=== PATIENT | male | born 1955 | race Caucasian/White ===

== ENCOUNTER → 2023-07-27 09:55 | Outpatient (REF) | payer OTHER, SELFPAY ==
[2023-07-27 13:08] LABS: % Basophils 0.6 % (0-2); % Eosinophils 1.1 % (0-6); % Immature Granulocytes 0.3 % (0-0.5); % Lymphocytes 22.5 % (20.5-51.1); % Neutrophils 69.5 % (42.2-75.2); Absolute Basophils 0.1 10^3/uL (0-0.2); Absolute Eosinophils 0.1 10^3/uL (0-0.7); Absolute Lymphocytes 2.2 10^3/uL (1.2-3.4); Absolute Monocytes 0.6 10^3/uL (0.1-0.6); Absolute Neutrophils 6.8 10^3/uL (1.4-6.5); Hematocrit 40.7 % (39.0-52.0); Hemoglobin 12.8 g/dL (13.0-18.0); Mean Corp Hgb Conc. 31.4 g/dL (33.0-37.0); Mean Corpuscular Hgb 18.7 pg (27.0-31.0); Mean Corpuscular Volume 59.5 fL (80.0-94.0); Mean Platelet Volume 10.1 fL (7.4-10.4); Nucleated Red Blood Cells % 0 % (-); Platelet Count 263 10^3/uL (130-400); Red Blood Cell Count 6.84 10^6/uL (4.70-6.10); Red Cell Dist. Width 18.9 % (11.5-14.5); White Blood Cell Count 9.9 10^3/uL (4.8-10.8)
[2023-07-27 13:22] LABS: ALT (SGPT) 20 U/L (0-50); AST (SGOT) 23 U/L (17-59); Albumin 4.6 g/dl (3.5-5.0); Alkaline Phosphatase 83 U/L (38-126); Blood Urea Nitrogen 24 mg/dl (9-20); Calcium 9.9 mg/dl (8.4-10.2); Carbon Dioxide 27 mmol/L (22-30); Chloride 100 mmol/L (98-107); Glucose 151 mg/dl (70-99); HDL Cholesterol 59 mg/dl; Iron 106 ug/dl (49-181); LDL Cholesterol, Calculated 28 mg/dl; Sodium 137 mmol/L (135-145); Total Cholesterol 101 mg/dl (50-199); Total Protein 7.4 g/dl (6.3-8.2); Triglyceride 72 mg/dl (10-149); Very Low Density Lipoprotein 14 mg/dl (0-30); eGFR > 60.00
[2023-07-27 13:29] LABS: Potassium 4.2 mmol/L (3.5-5.1)
[2023-07-27 13:31] LABS: Percent Saturation 33 % (20-50); Total Iron Binding Capacity 312 ug/dl (261-462)
[2023-07-27 13:46] LABS: Microalbumin, Random Urine 5.9 mg/dl (0.6-1.7); Microalbumin/creatinine Ratio 94.2 mg/g
[2023-07-27 13:46] LABS: TSH Reflex To Free T4 0.51 uIU/ml (0.47-4.68)
[2023-07-27 14:31] LABS: Glycohemoglobin (HgbA1c) 7.8 % (4.0-5.6)
== END ==
LOC: HWLAB 09:55
PROVIDERS: ATTENDING PHYSICIAN Internal Medicine
DX: E11.65 Type 2 diabetes mellitus with hyperglycemia (principal); E78.00 Pure hypercholesterolemia, unspecified; D56.3 Thalassemia minor; R03.0 Elevated blood-pressure reading, without diagnosis of hypertension; Z86.73 Personal history of transient ischemic attack (TIA), and cerebral infarction without residual deficits; D64.9 Anemia, unspecified
CPT/HCPCS: 36415; 80053; 80061; 82043; 82570; 82728; 83036; 83540; 83550; 84443; 85025

== ENCOUNTER → 2024-02-10 08:43 | Outpatient (REF) | payer OTHER, SELFPAY ==
[2024-02-10 11:32] LABS: Urine Albumin Negative (Neg - Trace); Urine Bilirubin Negative (Negative); Urine Character Clear (Clear); Urine Color Yellow; Urine Glucose 2+ (Negative); Urine Ketone Negative (Negative); Urine Leukocyte 1+ (Negative); Urine Nitrite Negative (Negative); Urine Occult Blood Negative (Negative); Urine Urobilinogen Negative (Neg - 1+)
[2024-02-10 11:40] LABS: % Basophils 1.1 % (0-2); % Eosinophils 1.7 % (0-6); % Immature Granulocytes 0.4 % (0-0.5); % Lymphocytes 20.6 % (20.5-51.1); % Monocytes 5.8 % (1.7-9.3); % Neutrophils 70.4 % (42.2-75.2); Absolute Basophils 0.1 10^3/uL (0-0.2); Absolute Eosinophils 0.1 10^3/uL (0-0.7); Absolute Lymphocytes 1.6 10^3/uL (1.2-3.4); Absolute Monocytes 0.4 10^3/uL (0.1-0.6); Absolute Neutrophils 5.3 10^3/uL (1.4-6.5); Hematocrit 38.2 % (39.0-52.0); Hemoglobin 11.7 g/dL (13.0-18.0); Mean Corp Hgb Conc. 30.6 g/dL (33.0-37.0); Mean Corpuscular Hgb 18.5 pg (27.0-31.0); Mean Corpuscular Volume 60.3 fL (80.0-94.0); Nucleated Red Blood Cells % 0 % (-); Platelet Count 236 10^3/uL (130-400); Red Blood Cell Count 6.34 10^6/uL (4.70-6.10); Red Cell Dist. Width 18.6 % (11.5-14.5); White Blood Cell Count 7.6 10^3/uL (4.8-10.8)
[2024-02-10 11:43] LABS: ALT (SGPT) 20 U/L (0-50); AST (SGOT) 21 U/L (17-59); Albumin 4.4 g/dl (3.5-5.0); Alkaline Phosphatase 72 U/L (38-126); Blood Urea Nitrogen 19 mg/dl (9-20); Calcium 9.5 mg/dl (8.4-10.2); Carbon Dioxide 25 mmol/L (22-30); Chloride 103 mmol/L (98-107); Glucose 197 mg/dl (70-99); Potassium 4.4 mmol/L (3.5-5.1); Sodium 142 mmol/L (135-145); Total Bilirubin 0.7 mg/dl (0.2-1.3); Total Protein 7.1 g/dl (6.3-8.2); eGFR > 60.00
[2024-02-10 11:49] LABS: Urine Bacteria Few (Negative); Urine Red Blood Cell 0-2 /HPF (0-2); Urine Squamous Cell 0-2 /LPF (Few); Urine White Cell 40-50 /HPF (0-5)
[2024-02-10 12:12] LABS: PSA, Total - Screen 0.37 ng/ml (0.0-4.0)
[2024-02-10 13:58] LABS: Glycohemoglobin (HgbA1c) 7.5 % (4.0-5.6)
== END ==
LOC: HWLAB 08:43
PROVIDERS: ATTENDING PHYSICIAN Internal Medicine
DX: E11.65 Type 2 diabetes mellitus with hyperglycemia (principal); E66.01 Morbid (severe) obesity due to excess calories; E78.00 Pure hypercholesterolemia, unspecified; Z86.73 Personal history of transient ischemic attack (TIA), and cerebral infarction without residual deficits; R26.89 Other abnormalities of gait and mobility; R45.1 Restlessness and agitation; G62.9 Polyneuropathy, unspecified; D64.9 Anemia, unspecified; Z12.5 Encounter for screening for malignant neoplasm of prostate
CPT/HCPCS: 36415; 80053; 81003; 81015; 83036; 85025; G0103

== ENCOUNTER 2024-05-22 02:38 | Emergency (ER) | payer OTHER, SELFPAY ==
[2024-05-22 03:01] VITALS: BP 150/94
[2024-05-22 04:52] VITALS: BP 171/84
--- NOTE | 2024-05-22 05:21 | ED.GENMED ---
History of Present Illness
General
Chief Complaint: Chest Pain
Source: patient
Time Seen by Provider: 05/22/24 04:57
History of Present Illness
History of Present Illness:
69-year-old male presents to the emergency room complaining of pain in his left neck, shoulder and chest. Pain awoke him from sleep. He also felt a bit short of breath. Patient denies any previous cardiac history though he has had a CVA in the
past. Presently his main complaint is pain in the back of his neck actually. Is worse with movement. No focal weakness numbness or tingling.
Past History
Past History
ED Past Medical History: Cancer (Basal cell), COPD, Hypercholesterolemia, NIDDM and Other (Thalassemia, pyelonephritis, nephrolithiasis, diverticulosis, colon polyps, osteoarthritis)
ED Past Surgical History: Orthopedic (Right ankle)
Social History
Tobacco: Former smoker
Alcohol: None
Drug: None
Personal:
Living: with family
Employment: Employed (heating/cooling)
Family History
Family History: Other (nc)
Phy Exam
Physical Exam
Physical Exam:
General: Awake, Alert, Oriented X3. No acute distress.
Vitals: Moderately hypertensive
Head: Atraumatic
Eyes: Pupils equal, EOMI
Throat: Airway intact, no exudates
Neck: Trachea midline, tenderness and muscle spasm noted left paraspinal cervical musculature
Lungs: Clear and equal b/l
Heart: Regular rate, no murmurs
Abd: Soft, Nontender, No pulsatile mass
Back: No CVA tenderness to percussion
Neuro: Cranial nerves intact, muscle strength equal bilaterally, cerebellar exam normal
Skin: Warm, dry, no rash
Extremities: pulses equal b/l, no edema
Scores
Heart Score for Chest Pain Patients
STEMI patient?: No
History: Slightly or Non-Suspicious
ECG: Nonspecific Repolarization
Age: >/= 65 years
Risk Factors: 1 or 2 Risk Factors
Troponin: </= Normal Limit
Heart Score for Chest Pain Patients: 4
Heart Score Risk: 20.3% MACE over next 6 weeks
Course
Orders/Labs/Results
Orders:
Orders
05/22/24 02:52
EKG [Electrocardiogram (*1)] Urgent
Reason for Study: Chest Pain
05/22/24 02:53
EKG- Treatment ONCE
05/22/24 04:57
Complete Blood Count/With Diff Urgent
Comprehensive Metabolic Panel Urgent
Troponin I Urgent
05/22/24 05:21
Aspirin Chewable [Low Strength Aspirin] 324 mg PO NOW STA
05/22/24 05:22
CR Chest - 2 Views Urgent
Comment:
Reason For Exam: chest pain
05/22/24 07:02
Troponin I Urgent
05/22/24 07:30
CT Chest Angio W/wo Iv Contras Urgent
Comment:
Reason For Exam: chest neck pain
Oxycodone [Roxicodone] 5 mg PO NOW STA
Abnormal Lab Results
05/22/24
04:57
WBC 13.0 H 10^3/uL
(4.8-10.8)
RBC 6.32 H 10^6/uL
(4.70-6.10)
Hgb 11.8 L g/dL
(13.0-18.0)
Hct 38.6 L %
(39.0-52.0)
MCV 61.1 L fL
(80.0-94.0)
MCH 18.7 L pg
(27.0-31.0)
MCHC 30.6 L g/dL
(33.0-37.0)
RDW 19.2 H %
(11.5-14.5)
Abs Immat Gran (auto) 0.1 H 10^3/uL
(0-0.05)
Absolute Neuts (auto) 10.5 H 10^3/uL
(1.4-6.5)
Absolute Monos (auto) 0.8 H 10^3/uL
(0.1-0.6)
Neutrophils % 80.8 H %
(42.2-75.2)
Lymphocytes % 10.7 L %
(20.5-51.1)
BUN 22 H mg/dl
(9-20)
Glucose 216 H mg/dl
(70-99)
05/22/24 04:57
05/22/24 04:57
Vital Signs
Initial and Last Documented VS:
Initial Vital Signs
Temp Pulse Resp BP Pulse Ox
98.2 F 66 18 150/94 98
05/22/24 03:01 05/22/24 03:01 05/22/24 03:01 05/22/24 03:01 05/22/24 03:01
Last Documented Vital Signs
Temp Pulse Resp BP Pulse Ox
98.5 F 75 16 140/82 98
05/22/24 09:24 05/22/24 10:35 05/22/24 10:35 05/22/24 10:35 05/22/24 10:35
*EKG
Interpreted by ED Provider?: Yes
Heart Rate: 71
Rate: normal
Rhythm: sinus
Slaughter: normal axis
Interval: first degree heart block
QRS Pattern: normal QRS
Ischemia: non-specific ST changes
*Pole Framer Interpretation
Rate: normal
Interpretation: normal
Heart Rate: 71
Rhythm: sinus
*Critical Care Note
Total Time (30-74mins, 75-104mins- exclusive of procedures): Not Applicable
ED Attending Note
-
Portions of this chart may have been created with voice recognition software.� Occasional wrong word or��sound alike� substitutions may have occurred due to the inherent limitations of voice recognition software.
Discharge Plan
Departure
Patient Disposition: Home (Routine Discharge)
Date of Disposition: 05/22/24
Time of Disposition: 10:14
Patient with high blood pressure during this ER visit?: Yes
Condition: Good
Discharge Problem:
Chest pain
Instructions: Chest Pain CBC Follow Up, BLOOD PRESSURE
Prescriptions:
No Action
metformin 1,000 mg Tablet
1,000 mg PO BID@0800,1700
cyanocobalamin (vitamin B-12) 1,000 mcg Tablet
1,000 mcg PO DAILY
aspirin 81 mg Tablet,Delayed Release (Dr/Ec)
81 mg PO DAILY
Ozempic 1 mg/dose (4 mg/3 mL) Pen Injector
1 mg SC FR
Prevagan
1 cap PO DAILY
atorvastatin 40 mg Tablet
40 mg PO QPM Qty: 60 0RF
clopidogrel 75 mg Tablet
75 mg PO DAILY Qty: 60 0RF
Referrals:
Nelda Mallory DO [Family Provider] -
Interventions
Interventions:
*Risk Screen - Suicide Last Done: 05/22/24 03:01
*General Assessment Last Done: 05/22/24 03:01
*Neglect/Abuse Screening Last Done: 05/22/24 03:01
ED- Fall Risk Assessment Last Done: 05/22/24 09:18
*Nursing Disposition Last Done: 05/22/24 10:37
ED- Cardiac Assessment Last Done: 05/22/24 09:20
Discharge Date and Time
Discharge Date/Time: 05/22/24 10:40
Print Language: CONGOLESE
[2024-05-22 05:37] LABS: ALT (SGPT) 21 U/L (0-50); AST (SGOT) 21 U/L (17-59); Albumin 4.6 g/dl (3.5-5.0); Alkaline Phosphatase 92 U/L (38-126); Blood Urea Nitrogen 22 mg/dl (9-20); Calcium 9.9 mg/dl (8.4-10.2); Carbon Dioxide 27 mmol/L (22-30); Chloride 102 mmol/L (98-107); Glucose 216 mg/dl (70-99); Potassium 4.4 mmol/L (3.5-5.1); Sodium 138 mmol/L (135-145); Total Bilirubin 0.8 mg/dl (0.2-1.3); eGFR > 60.00
[2024-05-22 05:41] LABS: % Basophils 0.5 % (0-2); % Eosinophils 1.1 % (0-6); % Immature Granulocytes 0.5 % (0-0.5); % Lymphocytes 10.7 % (20.5-51.1); % Monocytes 6.4 % (1.7-9.3); % Neutrophils 80.8 % (42.2-75.2); Absolute Basophils 0.1 10^3/uL (0-0.2); Absolute Eosinophils 0.1 10^3/uL (0-0.7); Absolute Immature Granulocytes 0.1 10^3/uL (0-0.05); Absolute Lymphocytes 1.4 10^3/uL (1.2-3.4); Absolute Monocytes 0.8 10^3/uL (0.1-0.6); Absolute Neutrophils 10.5 10^3/uL (1.4-6.5); Hematocrit 38.6 % (39.0-52.0); Hemoglobin 11.8 g/dL (13.0-18.0); Mean Corp Hgb Conc. 30.6 g/dL (33.0-37.0); Mean Corpuscular Hgb 18.7 pg (27.0-31.0); Mean Corpuscular Volume 61.1 fL (80.0-94.0); Mean Platelet Volume 9.4 fL (7.4-10.4); Nucleated Red Blood Cells % 0 % (-); Platelet Count 228 10^3/uL (130-400); Red Blood Cell Count 6.32 10^6/uL (4.70-6.10); Red Cell Dist. Width 19.2 % (11.5-14.5)
[2024-05-22 05:48] LABS: Troponin I < 0.012 ng/ml
[2024-05-22] MEDS: LOW STRENGTH ASPIRIN 324 MG PO (06:04)
[2024-05-22 06:57] VITALS: BP 152/66
[2024-05-22 07:00] VITALS: BP 136/89
[2024-05-22] MEDS: ROXICODONE 5 MG PO (07:37)
[2024-05-22 07:44] LABS: Troponin I < 0.012 ng/ml
[2024-05-22 08:00] VITALS: BP 126/66
[2024-05-22 10:35] VITALS: BP 140/82
== END 2024-05-22 10:40 | disposition home or self-care (01) ==
LOC: EMR 02:38
PROVIDERS: EMERGENCY PHYSICIAN Emergency Medicine; FAMILY PHYSICIAN Internal Medicine
DX: R07.89 Other chest pain (principal); R03.0 Elevated blood-pressure reading, without diagnosis of hypertension; Z87.891 Personal history of nicotine dependence
CPT/HCPCS: 99285; 71046; 71275; 80053; 84484; 85025; 93005; Q9967

== ENCOUNTER → 2024-06-07 11:01 | Outpatient (REF) | payer OTHER, SELFPAY | LOC: HWRCS 11:01 | PROVIDERS: ATTENDING PHYSICIAN Nurse Practitioner; FAMILY PHYSICIAN Internal Medicine | DX: I34.0 Nonrheumatic mitral (valve) insufficiency (principal) | CPT/HCPCS: 93306 ==

== ENCOUNTER 2024-09-03 09:44 | Inpatient (IN) | payer OTHER, SELFPAY ==
[2024-08-31 17:17] VITALS: BP 136/82
[2024-08-31 17:42] LABS: % Basophils 0.5 % (0-2); % Eosinophils 0.2 % (0-6); % Immature Granulocytes 0.3 % (0-0.5); % Lymphocytes 14.4 % (20.5-51.1); % Monocytes 4.7 % (1.7-9.3); % Neutrophils 79.9 % (42.2-75.2); Absolute Basophils 0.1 10^3/uL (0-0.2); Absolute Lymphocytes 1.6 10^3/uL (1.2-3.4); Absolute Monocytes 0.5 10^3/uL (0.1-0.6); Absolute Neutrophils 8.6 10^3/uL (1.4-6.5); Hematocrit 38.2 % (39.0-52.0); Hemoglobin 12.2 g/dL (13.0-18.0); Mean Corp Hgb Conc. 31.9 g/dL (33.0-37.0); Mean Corpuscular Hgb 18.7 pg (27.0-31.0); Mean Corpuscular Volume 58.6 fL (80.0-94.0); Mean Platelet Volume 9.8 fL (7.4-10.4); Nucleated Red Blood Cells % 0 % (-); Platelet Count 236 10^3/uL (130-400); Red Blood Cell Count 6.52 10^6/uL (4.70-6.10); Red Cell Dist. Width 18.7 % (11.5-14.5); White Blood Cell Count 10.8 10^3/uL (4.8-10.8)
[2024-08-31 17:47] LABS: ALT (SGPT) 18 U/L (0-50); AST (SGOT) 19 U/L (17-59); Albumin 4.7 g/dl (3.5-5.0); Alkaline Phosphatase 75 U/L (38-126); Blood Urea Nitrogen 17 mg/dl (9-20); Calcium 9.9 mg/dl (8.4-10.2); Carbon Dioxide 24 mmol/L (22-30); Chloride 108 mmol/L (98-107); Glucose 124 mg/dl (70-99); Potassium 4.1 mmol/L (3.5-5.1); Sodium 141 mmol/L (135-145); Total Protein 7.7 g/dl (6.3-8.2); eGFR > 60.00
[2024-08-31 17:59] LABS: Troponin I 0.022 ng/ml
--- NOTE | 2024-08-31 19:41 | ED.GENMED ---
History of Present Illness
General
Chief Complaint: Chest Pain
Time Seen by Provider: 08/31/24 19:12
History of Present Illness
History of Present Illness:
Patient is a 69-year-old male with history of diabetes, CVA, hyperlipidemia presenting to the emergency department with chest pain. Patient states for the past 3 days he has had midsternal chest pain that radiates down his left arm. He states that
it is at rest but worsens with exertion. He has associated shortness of breath and nausea. Occasionally will get lightheaded dizzy with it. No numbness tingling. However he states that occasionally he feels his right lower extremity will become
weak. He believes that it has been ongoing since before the chest pain which is why he has had multiple falls in the past few days. He did not hit his head or lose consciousness. He did have a stress test done last year reportedly which was
normal. He has not followed up with cardiology in greater than a year. At this time patient states that he is chest pain-free.
Past History
Past History
ED Past Medical History: Cancer (Basal cell), COPD, Hypercholesterolemia, NIDDM and Other (Thalassemia, pyelonephritis, nephrolithiasis, diverticulosis, colon polyps, osteoarthritis)
ED Past Surgical History: Orthopedic (Right ankle)
Social History
Tobacco: Former smoker
Alcohol: None
Drug: None
Personal:
Living: with family
Employment: Employed (heating/cooling)
Family History
Family History: Other (nc)
Phy Exam
Physical Exam
Physical Exam:
GENERAL: in no acute distress
HEENT: normocephalic, extraocular movements intact, moist oral mucosa
NECK: normal inspection
RESPIRATORY: no respiratory distress, clear to auscultation bilaterally
CARDIOVASCULAR: regular rate and rhythm
ABDOMEN/: soft, non-distended, non-tender to palpation, no rebound or guarding
EXTREMITIES: non-tender, no edema/swelling
NEUROLOGIC: awake and alert, moves all extremities, equal strength in upper and lower extremities normal sensation
SKIN: warm
Scores
Heart Score for Chest Pain Patients
STEMI patient?: Not applicable
Course
Orders/Labs/Results
Orders:
Orders
08/31/24 17:09
Electrocardiogram (*1) Urgent
Reason for Study: Chest Pain
EKG- Treatment ONCE
08/31/24 17:23
Complete Blood Count/With Diff Urgent
Comprehensive Metabolic Panel Urgent
Troponin I Urgent
08/31/24 19:29
EKG- Treatment ONCE
CR Chest - 2 Views Urgent
Comment:
Reason For Exam: chest pain
08/31/24 19:39
CT Head W/o Iv Contrast Urgent
Comment:
Reason For Exam: right leg weakness
08/31/24 20:00
Electrocardiogram (*1) Urgent
Reason for Study: Chest Pain
08/31/24 20:25
Troponin I Urgent
Abnormal Lab Results
08/31/24
17:23
RBC 6.52 H 10^6/uL
(4.70-6.10)
Hgb 12.2 L g/dL
(13.0-18.0)
Hct 38.2 L %
(39.0-52.0)
MCV 58.6 L fL
(80.0-94.0)
MCH 18.7 L pg
(27.0-31.0)
MCHC 31.9 L g/dL
(33.0-37.0)
RDW 18.7 H %
(11.5-14.5)
Absolute Neuts (auto) 8.6 H 10^3/uL
(1.4-6.5)
Neutrophils % 79.9 H %
(42.2-75.2)
Lymphocytes % 14.4 L %
(20.5-51.1)
Chloride 108 H mmol/L
(98-107)
Creatinine 0.6 L mg/dL
(0.7-1.3)
Glucose 124 H mg/dl
(70-99)
08/31/24 17:23
08/31/24 17:23
Vital Signs
Initial and Last Documented VS:
Initial Vital Signs
Temp Pulse Resp BP Pulse Ox
98.0 F 87 18 136/82 97
08/31/24 17:17 08/31/24 17:17 08/31/24 17:17 08/31/24 17:17 08/31/24 17:17
Last Documented Vital Signs
Temp Pulse Resp BP Pulse Ox
98.0 F 78 12 136/82 97
08/31/24 17:17 08/31/24 19:15 08/31/24 19:15 08/31/24 17:17 08/31/24 17:17
MDM/Problems Addressed
Differential Diagnosis Includes:
Patient is a 69-year-old man presenting to the emergency department with chest pain as well as right leg weakness as cause multiple falls. On arrival vitals are unremarkable. On exam he does not have any neurodeficits. Concern for ACS. The right
leg weakness did precede the chest pain. I did consider dissection though less likely as he is chest pain-free and this has been going on for many days. Could be CVA or TIA. Blood work obtained prior to my evaluation is generally unremarkable.
Given that his chest pain comes and goes will obtain a delta troponin. Will also obtain a CT scan of his head.
*Critical Care Note
Total Time (30-74mins, 75-104mins- exclusive of procedures): Not Applicable
Update Note
Update Note:
Delta troponin with no significant change. CT scan of the head negative. Patient with significant difficulty with ambulation. He would benefit from PT evaluation especially given his recurrent falls. Discussed with hospitalist who accepted
patient to their service
ED Attending Note
-
Portions of this chart may have been created with voice recognition software.� Occasional wrong word or��sound alike� substitutions may have occurred due to the inherent limitations of voice recognition software.
Discharge Plan
Departure
Patient Disposition: Admit
Date of Disposition: 08/31/24
Time of Disposition: 22:09
Presentation/result/management discussed w/ accepting MD/DO: Hospitalist
Discharge Problem:
Ambulatory dysfunction, Chest pain
Prescriptions:
No Action
metformin 1,000 mg Tablet
1,000 mg PO BID@0800,1700
cyanocobalamin (vitamin B-12) 1,000 mcg Tablet
1,000 mcg PO DAILY
aspirin 81 mg Tablet,Delayed Release (Dr/Ec)
81 mg PO DAILY
Ozempic 1 mg/dose (4 mg/3 mL) Pen Injector
1 mg SC FR
Prevagan
1 cap PO DAILY
atorvastatin 40 mg Tablet
40 mg PO QPM Qty: 60 0RF
clopidogrel 75 mg Tablet
75 mg PO DAILY Qty: 60 0RF
Referrals:
Ramone Knutson MD [Primary Care Provider] -
Interventions
Interventions:
*Risk Screen - Suicide Last Done: 08/31/24 17:17
*General Assessment Last Done: 08/31/24 17:17
*Neglect/Abuse Screening Last Done: 08/31/24 17:17
ED- Cardiac Assessment Last Done: 08/31/24 20:00
Discharge Date and Time
Print Language: IRAQI
[2024-08-31 20:17] VITALS: BP 120/66
[2024-08-31 21:06] LABS: Troponin I 0.029 ng/ml
[2024-08-31 21:25] VITALS: BP 129/90
[2024-08-31 22:00] VITALS: BP 137/73
--- NOTE | 2024-08-31 22:25 | HPS.HSE ---
Addendum entered and electronically signed by Dorian Haynes DO 08/31/24 23:58:
Patient seen and examined independently. Agree with findings and plan as set forth by MICK Doyle.
Patient presents for evaluation after being down on the ground for about 3 hours earlier today. Patient reports RLE weakness that has been ongoing / progressive over the past 6 months. He notes particular trouble getting up if he is kneeling on
the ground. 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 He states that his R leg gave out and he collapsed on a few occasions. On the final occasion he was unable to get up. he remained on the ground for about 3
hours until he was able to crawl to get help.
Patient denies any RUE weakness at all. He denies any headache, vision changes, etc. No recent fevers / chills, etc.
Patient does complain of chest pain across the anterior chest that has been intermittent for the past 1 week or so. No associated diaphoresis, dyspnea, etc.
Patient states that his RLE weakness has been attributed to neuropathy. he states that he has appreciated decrease in size in the RLE over the past month or so.
Ass:
Fall / Found Down
Chronic / Progressive RLE Weakness
Chest Pain / Non-Negative Troponin
DM-II
Anxiety / Depression
BPH
Plan:
Observe overnight for further evaluation and treatment.
Doubt acute CVA as symptoms seem to be gradual / progressive and not acute.
Unilateral weakness seems atypical for DM neuropathy however.
Neurology evaluation for additional recommendations.
MRI brain for completeness.
Follow troponin to [facility] and consider Cardiology evaluation if recurrent chest pain or significant troponin elevation.
PT / OT evaluations for gait / balance.
Original Note:
Family Physician
-
Family Physician: Ramone Knutson
Chief Complaint
-
chest pain
History of Present Illness
69-year-old male with history of diabetes, CVA, hyperlipidemia presenting to the emergency department with chest pain. patient pain stated pain across the chest radiating to his neck. he complained of sob which is with exertion for one week. he
stated worsening of his right LE weakness. this week he had multiple falls. 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 he was on the floor for 3 hours, then he crawled to the main door and got the
help. Occasionally will get lightheaded dizzy and PHILIP No numbness tingling. denied fever, chills. denied syncope. denied abdominal pain. recently got over with diarrhea. denied dysuria or hematuria.
head CT negative. chest x ray with Mild left basilar opacity may reflect atelectasis or pneumonitis/pneumonia in the appropriate clinical setting.
admitting for further management.
Medical History
Past Medical History
Past Medical History: Reports Other
Additional Past Medical History:
HLd
chronic pain
pulmonary emphysema
type 2 DM
thalassemia
CVA
kidney stone
peripheral neuropathy
Past Surgical History: Reports Other
Additional Past Surgical History:
cataract surgery
right ankle surgery
Social History
Tobacco: Non-smoker
Alcohol: None
Drug: None
Personal:
Living: With Family
Employment: Employed
Family History
Family History: Not pertinent
Allergies / Home Medications
Allergies reflects when Allergies were last updated in [email or web address].
Home Medications with original date entered in [email or web address]
Allergy/Medication List:
Allergies
Allergy/AdvReac Type Severity Reaction Status Date / Time
No Known Allergies Allergy Verified 08/31/24 17:17
Home Medications
metformin 1,000 mg tablet 1,000 mg PO BID@0800,1700 Diabetes 03/12/11
atorvastatin 40 mg tablet 80 mg PO QPM Stroke 08/31/24
sertraline 50 mg tablet 50 mg PO DAILY 08/31/24
tamsulosin 0.4 mg capsule (Flomax) 0.4 mg PO HS 08/31/24
Review of Systems
-
Constitutional: Reports No Symptoms
EENT: Reports No Symptoms
Respiratory: Reports Trouble Breathing
Cardiac: Reports Chest Pain
Abdomen/GI: Reports No Symptoms
: Reports No Symptoms
Musculoskeletal: Reports No Symptoms
Skin: Reports No Symptoms
Neurological: Reports Dizzy and Headache
Endocrine: Reports No Symptoms
Hematologic/Lymphatic: Reports No Symptoms
Psych: Reports No Symptoms
Physical Exam
Vital Signs
Vital Signs
Temp Pulse Resp BP Pulse Ox
98.0 F 78 12 136/82 97
08/31/24 17:17 08/31/24 19:15 08/31/24 19:15 08/31/24 17:17 08/31/24 17:17
Physical Exam
General: Well Developed, Well Nourished and No Apparent Distress
HEENT: NormoCephalic, Moist mucous membranes and Atraumatic
Respiratory: Clear
Cardiac: S1/S2 and Regular Rhythm; No Murmur or Rub
GI: Soft, Non Tender, Non Distended and Normal Bowel Sounds; No Organomegaly
Rectal: Deferred by Provider
Musculoskeletal: No Clubbing, No Cyanosis and No Edema
Skin: No Rash
Neuro: AO x 3, Nonfocal/grossly intact and Other (right LE weakness)
Psych: Calm
Laboratory Results
-
08/31/24 17:23
08/31/24 17:23
Laboratory Results
Total Bilirubin 1.0 mg/dl (0.2-1.3) 08/31/24 17:23
AST 19 U/L (17-59) 08/31/24 17:23
ALT 18 U/L (0-50) 08/31/24 17:23
Alkaline Phosphatase 75 U/L (38-126) 08/31/24 17:23
Troponin I 0.029 ng/ml D 08/31/24 20:25
Data Reviewed
-
Diagnostic Radiology: Report Reviewed by me
CT Scan: Report Reviewed by me
Lab Data: Labs Reviewed by me
Impression/Plan
-
#right LE weakness/ambulatory dysfunction
#fall
-PT/OT consulted
-head CT negative
-obtain MRI of head
-obtain CPK
#chest pain r/o ACS
--trop negative
-trend trop and EKG
-chest x ray Mild left basilar opacity may reflect atelectasis or pneumonitis/pneumonia in the appropriate clinical setting.
-EKG with NSR
#Diabetes with neuropathy
-hold metformin
-sliding scale
-CHO diet
#HLD
-statin
#depression
-sertraline continued
#BPH
-Flomax continued
#History of nephrolithiasis
#Fatty liver
#DVT prophylaxis-Lovenox
#Full code
[2024-08-31 23:00] VITALS: BP 130/78; BMI 26.2
[2024-09-01] VITALS (9 sets, daily range): BP systolic 119–177; BP diastolic 65–97; PULSE 65–76; O2SAT 99
[2024-09-01 00:07] LABS: Creatine Phosphokinase 66 U/L (55-170)
[2024-09-01 00:35] LABS: Glucose - Point of Care 144 mg/dl (70-99)
--- NOTE | 2024-09-01 00:37 | PTCARENOTE ---
Pt received from ED via stretcher at 0015. Pt pleasant, AAOx3, VSS, and able to ambulate into room with assistance. Pt complained of slight dizziness while ambulating. Bed alarm placed and plugged in. Pt receptive to room and call mercedes. Pt bed in
lowest position and call mercedes within reach. pt educated on importance of call mercedes usage. Pt relays understanding and cooperation. Will continue with current plan of care.
[2024-09-01 01:18] LABS: Troponin I 0.023 ng/ml
[2024-09-01 07:59] LABS: Glucose - Point of Care 128 mg/dl (70-99)
[2024-09-01] MEDS: NOVOLOG FLEXPEN-LOW RESISTANCE SC ×2 (08:12→16:39)
[2024-09-01] MEDS: ZOLOFT 50 MG PO (08:13)
[2024-09-01] MEDS: PROTONIX 40 MG PO (08:15)
[2024-09-01] MEDS: VIBRAMYCIN 100 MG PO ×2 (08:15→20:29)
[2024-09-01 08:28] LABS: Glycohemoglobin (HgbA1c) 6.6 % (4.0-5.6)
[2024-09-01 10:09] LABS: Creatine Phosphokinase 77 U/L (55-170); HDL Cholesterol 51 mg/dl; LDL Cholesterol, Calculated 32 mg/dl; Total Cholesterol 97 mg/dl (50-199); Triglyceride 73 mg/dl (10-149); Very Low Density Lipoprotein 14 mg/dl (0-30)
[2024-09-01 11:47] LABS: Glucose - Point of Care 191 mg/dl (70-99)
--- NOTE | 2024-09-01 12:01 | W.PN.HOSP.TC ---
Today's Communication/Plan
-
D Dimer- If positive CT chest
TSH
Assessment / Plan
Assessment / Plan
69-year-old presented for evaluation after was found on the ground for 3 hours on the day of admission. Reported right lower extremity weakness which has been ongoing and progressive for the past 6 months. Difficulty getting up from the ground.
Was at work and he fell 3 times. Right leg gave out
Echo 06/07/2024-EF 65 to 70%. Normal RV size and function. Aortic sclerosis without stenosis
CT head-no acute changes
Cardiovascular system S1-S2 appreciated
Chest clear to auscultation
Abdomen soft and nontender
Right lower extremity decreased muscle mass, mild weakness noted, decreased reflexes right LE
Left upper extremity decreased muscle mass secondary to shoulder problems per patient
# Fall/found down/right lower extremity weakness-progressive
Rule out CVA versus lumbar radiculopathy
Diabetic neuropathy possible but not typical
Normal CPK levels
Check B12 levels-Pending.
Add TSH
MRI of the brain ordered-defer to neurology
May need MRI of the lumbar spine
Neurology evaluation requested
Neuro planning EMG
PT OT evaluation
# Positive orthostatic vital signs. Will give 1 L of IV fluids and follow
# Chest pain
Check D DIMER
? Pleurisy
Troponin negative x 3
Chest x-ray-mild left basilar opacity may reflect atelectasis/pneumonitis/pneumonia-add doxycycline
EKG-sinus rhythm left axis deviation incomplete right bundle branch block
# Diabetes type 2- with neuropathy-HbA1C 6.6
Continue metformin, Accu-Cheks and sliding scale coverage
# Anxiety and depression-continue sertraline
# Hyperlipidemia-continue atorvastatin for now
# History of CVA in 2022-unclear why patient is not on antiplatelets-patient is not sure. Add aspirin 81 mg. Continue statin
# Nephrolithiasis
# Fatty liver
# Intentional weight loss about 50 pounds in the past year with Ozempic. Stopped taking Ozempic 2 months ago due to cost.
# Osteoarthritis
# Ex-smoker
# DVT prophylaxis-Lovenox
# Full code
D/W RN
Part of this note was created using voice recognition system. Occasional wrong word or��sound alike� substitutions may have inadvertently occurred due to the inherent limitations of voice recognition software. If noted kindly bring it to my
attention for correction.
Anticipated Discharge: 24 - 48 hours
Subjective/Interval History
-
Date of Service: September 01, 2024
Objective Data
-
Vital Signs:
Vital Signs
Temp Pulse Resp BP Pulse Ox
97.8 F 73 16 149/86 93
09/01/24 11:00 09/01/24 11:00 09/01/24 11:00 09/01/24 11:00 09/01/24 11:00
[2024-09-01 12:11] LABS: Vitamin B12 822 pg/ml (239-931)
--- NOTE | 2024-09-01 12:37 | CM ---
Addendum entered by Jose Rodrigues 09/01/24 12:44:
Patient admitted as obs. BARNETT form verbally reviewed, copy given to patient, copy on chart
Original Note:
Patient seen bedside, initial assessment completed. Patient is a 69-year-old male with history of diabetes, CVA, hyperlipidemia presenting to the emergency department with chest pain.
Patient resides w/ spouse, daughter, son and granddaughter in a 2[facility]- 1 step to enter. Independent w/ the use of a RW. No SNF/HC hx reported.
Address, point of contact and insurance verified
PCP: Ramone Knutson
Pharmacy: [facility]
PT ordered, will watch for any recommendations
Plan: CM will cont to follow for d/c planning
[2024-09-01 12:47] LABS: D-Dimer < 0.27 ug/mlFEU (0.00-0.50)
[2024-09-01] MEDS: NOVOLOG FLEXPEN-LOW RESISTANCE 1 UNITS SC (12:54)
[2024-09-01] MEDS: NSS 1000 IV (12:55)
[2024-09-01] MEDS: LOW STRENGTH ASPIRIN 81 MG PO (12:55)
--- NOTE | 2024-09-01 14:25 | CON.NEURO ---
Neuro Assessment/Plan
Assessment
peripheral neuropathy - with 6 months progressive symptoms, large fiber neuropathy on exam with preserved pinprick concern is for CIDP, check mri lumbar w/ and w/o looking for enhancement of nerve roots; and then if negative then EMG.
Diabetes, well controlled, this does increase risk of CIDP; no loss of pinprick as would be expectected with DPN
no need for brain MRI
Consultation
Order
Date of Consultation: 09/01/24
Requesting Provider: Dorian Haynes DO
Reason for Consult: rigth leg weakness
Subjective/Objective
Subjective Data
Date of Service: September 01, 2024
from h&p:
Patient presents for evaluation after being down on the ground for about 3 hours earlier today. Patient reports RLE weakness that has been ongoing / progressive over the past 6 months. He notes particular trouble getting up if he is kneeling on
the ground. 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 He states that his R leg gave out and he collapsed on a few occasions. On the final occasion he was unable to get up. he remained on the ground for about 3
hours until he was able to crawl to get help.
Patient denies any RUE weakness at all. He denies any headache, vision changes, etc. No recent fevers / chills, etc.
Patient does complain of chest pain across the anterior chest that has been intermittent for the past 1 week or so. No associated diaphoresis, dyspnea, etc.
Patient states that his RLE weakness has been attributed to neuropathy. he states that he has appreciated decrease in size in the RLE over the past month or so.
This morning, patient confirms progressive weakness right leg x6 months, with 1 month of atrophy. no numbness. no upper ext symptoms.
Objective Data
Vital Signs
Temp Pulse Resp BP Pulse Ox
36.6 C 73 16 149/86 93
09/01/24 11:00 09/01/24 11:00 09/01/24 11:00 09/01/24 11:00 09/01/24 11:00
Lab Results
08/31/24 17:23
08/31/24 17:23
Sodium 141 mmol/L (135-145) 08/31/24 17:23
Potassium 4.1 mmol/L (3.5-5.1) 08/31/24 17:23
BUN 17 mg/dl (9-20) 08/31/24 17:23
Glucose 124 mg/dl (70-99) H 08/31/24 17:23
Calcium 9.9 mg/dl (8.4-10.2) 08/31/24 17:23
LDL Cholesterol, Calc 32 mg/dl 09/01/24 07:53
Vitamin B12 822 pg/ml (239-931) 09/01/24 07:53
Patient Allergies
No Known Allergies Allergy (Verified 08/31/24 17:17)
Physical Exam
-
AAOx3, speech clear, language intact
VFF, EOMI, face symmetric
full strength b/l UE, RLE 5-/5, LLE 5/5
sensation intact to pin; significant vibratory loss up to the knees
DTR trace/1+
Medications
-
Active Medications
Generic Name Dose Route Start Last Admin
Trade Name Freq PRN Reason Stop Dose Admin
Aspirin 81 mg 09/01/24 12:00 09/01/24 12:55
Aspirin 81 Mg Chewable Tablet PO 09/29/24 11:59 81 mg
DAILY MIKE Administration
Atorvastatin Calcium 80 mg 09/01/24 18:00
Atorvastatin (Lipitor) 40 Mg Tablet PO 09/29/24 17:59
QPM MIKE
Dextrose 12.5 grams 09/01/24 00:22
Dextrose 50% (0.5 Grams/Ml) 50 Ml Syringe IV 09/29/24 00:21
[id number] PRN
hypoglycemia
Protocol
Doxycycline Hyclate 100 mg 09/01/24 08:00 09/01/24 08:15
Doxycycline 100 Mg Capsule PO 100 mg
Q12 MIKE Administration
Enoxaparin Sodium 40 mg 09/01/24 18:00
Enoxaparin Sodium 40 Mg/0.4 Ml Syringe SC 09/29/24 17:59
QPM MIKE
Glucagon 1 mg 09/01/24 00:22
Glucagon 1 Mg Vial IM 09/29/24 00:21
PRN PRN
hypoglycemia
Protocol
Sodium Chloride 1,000 mls @ 75 mls/hr 09/01/24 12:00 09/01/24 12:55
Nss IV 09/02/24 01:19 1,000 mls
.[id number] MIKE Administration
Insulin Aspart 0 units 09/01/24 07:30 09/01/24 12:54
Insulin Aspart Low Resistance 300 Units/3 Ml Pen.Injctr SC 09/29/24 07:29 1 units
AC MIKE Administration
Protocol
Pantoprazole Sodium 40 mg 09/01/24 08:00 09/01/24 08:15
Pantoprazole 40 Mg Delayed Release Tablet PO 09/29/24 07:59 40 mg
DAILY MIKE Administration
Sertraline HCl 50 mg 09/01/24 08:00 09/01/24 08:13
Sertraline 50 Mg Tablet PO 09/29/24 07:59 50 mg
DAILY MIKE Administration
Sodium Chloride 0 flush 08/31/24 23:00
Sodium Chloride 0.9% (Flush) Syringe IV 09/28/24 22:59
PER PROTOCOL MIKE
Tamsulosin HCl 0.4 mg 09/01/24 22:00
Tamsulosin 0.4 Mg Capsule PO 09/29/24 21:59
HS MIKE
Home Medications
�Medication �Instructions �Recorded
metformin 1,000 mg tablet 1,000 mg PO BID@0800,1700 Diabetes 03/12/11
atorvastatin 40 mg tablet 80 mg PO QPM Stroke 08/31/24
sertraline 50 mg tablet 50 mg PO DAILY Mental 08/31/24
Health/Anxiety
tamsulosin 0.4 mg capsule (Flomax) 0.4 mg PO HS Urinary Issue 08/31/24
[2024-09-01 16:24] LABS: Glucose - Point of Care 144 mg/dl (70-99)
[2024-09-01] MEDS: LOVENOX 40 MG SC (17:12)
[2024-09-01] MEDS: LIPITOR 80 MG PO (17:12)
[2024-09-01] MEDS: FLOMAX 0.4 MG PO (21:26)
[2024-09-02 03:15] VITALS: BP 105/73
[2024-09-02 03:38] LABS: Glucose - Point of Care 140 mg/dl (70-99)
[2024-09-02 07:00] VITALS: BP 137/79
[2024-09-02 07:58] LABS: Glucose - Point of Care 124 mg/dl (70-99)
[2024-09-02] MEDS: NOVOLOG FLEXPEN-LOW RESISTANCE SC ×3 (08:09→17:24)
[2024-09-02] MEDS: LOW STRENGTH ASPIRIN 81 MG PO (08:56)
[2024-09-02] MEDS: ZOLOFT 50 MG PO (08:56)
[2024-09-02] MEDS: VIBRAMYCIN 100 MG PO ×2 (08:56→20:17)
[2024-09-02] MEDS: PROTONIX 40 MG PO (08:56)
[2024-09-02 09:24] LABS: Hematocrit 40.3 % (39.0-52.0); Hemoglobin 12.6 g/dL (13.0-18.0); Mean Corp Hgb Conc. 31.3 g/dL (33.0-37.0); Mean Corpuscular Hgb 18.9 pg (27.0-31.0); Mean Corpuscular Volume 60.4 fL (80.0-94.0); Platelet Count 222 10^3/uL (130-400); Red Blood Cell Count 6.67 10^6/uL (4.70-6.10); Red Cell Dist. Width 19.3 % (11.5-14.5); White Blood Cell Count 8.2 10^3/uL (4.8-10.8)
[2024-09-02 09:35] LABS: Blood Urea Nitrogen 16 mg/dl (9-20); Calcium 9.6 mg/dl (8.4-10.2); Carbon Dioxide 26 mmol/L (22-30); Chloride 106 mmol/L (98-107); Estimated Creatinine Clearance 97 ml/min; Glucose 199 mg/dl (70-99); Potassium 4.9 mmol/L (3.5-5.1); Sodium 140 mmol/L (135-145); eGFR > 60.00
[2024-09-02 11:00] VITALS: BP 139/69
[2024-09-02 12:11] LABS: Glucose - Point of Care 121 mg/dl (70-99)
[2024-09-02 15:00] VITALS: BP 140/82; BP 152/85; BP 158/76; PULSE 63; PULSE 68; PULSE 70
--- NOTE | 2024-09-02 15:39 | W.PN.HOSP.TC ---
Today's Communication/Plan
-
WIll D/W Neuro Re plan
Assessment / Plan
Assessment / Plan
69-year-old presented for evaluation after was found on the ground for 3 hours on the day of admission. Reported right lower extremity weakness which has been ongoing and progressive for the past 6 months. Difficulty getting up from the ground.
Was at work and he fell 3 times. Right leg gave out
Echo 06/07/2024-EF 65 to 70%. Normal RV size and function. Aortic sclerosis without stenosis
CT head-no acute changes
Cardiovascular system S1-S2 appreciated
Chest clear to auscultation
Abdomen soft and nontender
Right lower extremity decreased muscle mass, mild weakness noted, decreased reflexes right LE
Left upper extremity decreased muscle mass secondary to shoulder problems per patient
# Fall/found down/right lower extremity weakness-progressive
Rule out CVA versus lumbar radiculopathy
Diabetic neuropathy possible but not typical
Normal CPK level, TSH and B12,
MRI of the lumbar spine trace disc bulge L1-L2, L2-L3, L3-L4, L4-L5, L5-S1.
Neurology evaluation appreciated
Neuro planning EMG
PT OT evaluation
# Positive orthostatic vital signs. Status post 1 L of IV fluids
# Chest pain-was transient likely pleurisy from infection
Also added Protonix-to treat possible gastritis
D-dimer negative
Troponin negative x 3
Chest x-ray-mild left basilar opacity may reflect atelectasis/pneumonitis/pneumonia-continue doxycycline
EKG-sinus rhythm left axis deviation incomplete right bundle branch block
# Diabetes type 2- with neuropathy-HbA1C 6.6
Continue metformin, Accu-Cheks and sliding scale coverage
# Anxiety and depression-continue sertraline
# Hyperlipidemia-continue atorvastatin for now
# History of CVA in 2022-unclear why patient is not on antiplatelets-patient is not sure. Added aspirin 81 mg. Continue statin
# Nephrolithiasis
# Fatty liver
# Intentional weight loss about 50 pounds in the past year with Ozempic. Stopped taking Ozempic 2 months ago due to cost.
# Osteoarthritis
# Ex-smoker
# DVT prophylaxis-Lovenox
# Full code
D/W RN
D/W Neuro
Part of this note was created using voice recognition system. Occasional wrong word or��sound alike� substitutions may have inadvertently occurred due to the inherent limitations of voice recognition software. If noted kindly bring it to my
attention for correction.
Anticipated Discharge: Within 24 hours
Subjective/Interval History
-
Date of Service: September 02, 2024
Objective Data
-
Labs:
Laboratory Results
09/02/24
09:08
WBC 8.2
Hgb 12.6 L
Hct 40.3
Plt Count 222
Sodium 140
Potassium 4.9
Chloride 106
Carbon Dioxide 26
BUN 16
Creatinine 0.7
Glucose 199 H
Calcium 9.6
Vital Signs:
Vital Signs
Temp Pulse Resp BP Pulse Ox
97.7 F 62 18 139/69 98
09/02/24 11:00 09/02/24 11:00 09/02/24 11:00 09/02/24 11:00 09/02/24 11:00
I&O
09/01/24 09/02/24 09/03/24
06:59 06:59 06:59
Intake Total 660 / 660
Output Total 775 / 775
Balance -115 / -115
--- NOTE | 2024-09-02 16:32 | W.PN.NEURO.1 ---
Today's Communication / Plan
-
revisit EMG vs LP vs trial of IVIG tomorrow
Neuro Assessment/Plan
Assessment
MRI lumbar essentially unremarkable, no nerve root enhancement
peripheral neuropathy - with 6 months progressive symptoms, large fiber neuropathy on exam with preserved pinprick concern is for CIDP, no answer if I can get EMG tomorrow; spoke extensively with patient regarding options of LP tomorrow which may
make diagnosis; trial of IVIG x5 days including side effects; waiting to see if inpatient EMG is possible (I messaged Dr Mei yesterday) and he is still thinking about the options
Diabetes, well controlled, this does increase risk of CIDP; no loss of pinprick as would be expectected with DPN
no need for brain MRI
Subjective/Objective
Subjective Data
Date of Service: September 02, 2024
right leg weakness, unchanged
Objective Data
Vital Signs
Temp Pulse Resp BP Pulse Ox
36.6 C 63 18 158/76 97
09/02/24 15:00 09/02/24 15:00 09/02/24 15:00 09/02/24 15:00 09/02/24 15:00
Lab Results
09/02/24 09:08
09/02/24 09:08
Sodium 140 mmol/L (135-145) 09/02/24 09:08
Potassium 4.9 mmol/L (3.5-5.1) 09/02/24 09:08
BUN 16 mg/dl (9-20) 09/02/24 09:08
Glucose 199 mg/dl (70-99) H 09/02/24 09:08
Calcium 9.6 mg/dl (8.4-10.2) 09/02/24 09:08
LDL Cholesterol, Calc 32 mg/dl 09/01/24 07:53
Vitamin B12 822 pg/ml (239-931) 09/01/24 07:53
Patient Allergies
No Known Allergies Allergy (Verified 08/31/24 17:17)
Physical Exam
-
AAOx3, speech clear, language intact
VFF, EOMI, face symmetric
full strength b/l UE, RLE 5-/5, LLE 5/5
sensation intact to pin; significant vibratory loss up to the knees
DTR trace/1+
[2024-09-02] MEDS: LOVENOX 40 MG SC (17:25)
[2024-09-02] MEDS: LIPITOR 80 MG PO (17:25)
[2024-09-02 19:50] VITALS: BP 140/79
[2024-09-02] MEDS: MELATONIN 5 MG PO (21:55)
[2024-09-02] MEDS: FLOMAX 0.4 MG PO (21:56)
[2024-09-02 22:14] LABS: Glucose - Point of Care 98 mg/dl (70-99)
[2024-09-02 23:48] VITALS: BP 146/75
[2024-09-03 03:25] VITALS: BP 160/84
[2024-09-03] MEDS: TYLENOL 650 MG PO ×2 (04:03→06:40)
[2024-09-03 06:00] VITALS: BMI 31.7
[2024-09-03 07:00] VITALS: BP 139/76
[2024-09-03 07:35] LABS: Glucose - Point of Care 130 mg/dl (70-99)
[2024-09-03] MEDS: NOVOLOG FLEXPEN-LOW RESISTANCE SC ×2 (07:35→11:50)
[2024-09-03] MEDS: VIBRAMYCIN 100 MG PO (07:44)
[2024-09-03] MEDS: PROTONIX 40 MG PO (07:44)
[2024-09-03] MEDS: LOW STRENGTH ASPIRIN 81 MG PO (07:44)
[2024-09-03] MEDS: ZOLOFT 50 MG PO (07:44)
[2024-09-03 11:00] VITALS: BP 142/73
[2024-09-03 11:43] LABS: Glucose - Point of Care 125 mg/dl (70-99)
--- NOTE | 2024-09-03 11:56 | NS.EMG ---
Electromyogram (EMG) Study
EMG/NCS Summary
EMG/nerve conduction study of both lower limbs and the right upper limb was completed at the patient's bedside.
Electrodiagnostic Impressions:
Chronic length-dependent, primarily axonal, sensorimotor peripheral polyneuropathy.
Severe right median neuropathy at the wrist (carpal tunnel syndrome).
Severe right ulnar neuropathy at the elbow in the region of the cubital tunnel.
Full dictated report, tabular data, and waveforms to follow.
--- NOTE | 2024-09-03 14:45 | W.PN.HOSP.TC ---
Addendum entered and electronically signed by Randy Mcknight MD 09/03/24 14:56:
Discussed with neurology-this looks like diabetic neuropathy per EMG
Patient does have good DP pulses on the right leg
Original Note:
Today's Communication/Plan
-
Await neuro rounds
Assessment / Plan
Assessment / Plan
69-year-old presented for evaluation after was found on the ground for 3 hours on the day of admission. Reported right lower extremity weakness which has been ongoing and progressive for the past 6 months. Difficulty getting up from the ground.
Was at work and he fell 3 times. Right leg gave out
Echo 06/07/2024-EF 65 to 70%. Normal RV size and function. Aortic sclerosis without stenosis
CT head-no acute changes
Had pain in the right leg last night.
Cardiovascular system S1-S2 appreciated
Chest clear to auscultation
Abdomen soft and nontender
Right lower extremity decreased muscle mass, mild weakness noted, decreased reflexes right LE
Left upper extremity decreased muscle mass secondary to shoulder problems per patient
# Fall/found down/right lower extremity weakness-progressive
Rule out CVA versus lumbar radiculopathy
Diabetic neuropathy possible but not typical
Normal CPK level, TSH and B12,
MRI of the lumbar spine trace disc bulge L1-L2, L2-L3, L3-L4, L4-L5, L5-S1.
Neurology evaluation appreciated
EMG- length-dependent, primarily axonal, sensorimotor peripheral polyneuropathy.
? Diabetic neuropathy
He does not want an LP
PT OT evaluation
# Positive orthostatic vital signs. Status post 1 L of IV fluids
No more orthostasis noted.
# Chest pain-was transient likely pleurisy from infection
Also added Protonix-to treat possible gastritis
D-dimer negative
Troponin negative x 3
Chest x-ray-mild left basilar opacity may reflect atelectasis/pneumonitis/pneumonia-continue doxycycline for 5 days.
EKG-sinus rhythm left axis deviation incomplete right bundle branch block
# Diabetes type 2- with neuropathy-HbA1C 6.6
Continue metformin, Accu-Cheks and sliding scale coverage
# Anxiety and depression-continue sertraline
# Hyperlipidemia-continue atorvastatin for now
# History of CVA in 2022-unclear why patient is not on antiplatelets-patient is not sure. Added aspirin 81 mg. Continue statin
# Nephrolithiasis
# Fatty liver
# Intentional weight loss about 50 pounds in the past year with Ozempic. Stopped taking Ozempic 2 months ago due to cost.
# Osteoarthritis
# Ex-smoker
# DVT prophylaxis-Lovenox
# Full code
D/W RN
D/W Neuro
Pt wants me to call his only after 5 pm today [phone]
Part of this note was created using voice recognition system. Occasional wrong word or��sound alike� substitutions may have inadvertently occurred due to the inherent limitations of voice recognition software. If noted kindly bring it to my
attention for correction.
Anticipated Discharge: Within 24 hours
Subjective/Interval History
-
Date of Service: September 03, 2024
Objective Data
-
Vital Signs:
Vital Signs
Temp Pulse Resp BP Pulse Ox
97.7 F 63 16 142/73 97
09/03/24 11:00 09/03/24 11:00 09/03/24 11:00 09/03/24 11:00 09/03/24 11:00
I&O
09/02/24 09/03/24 09/04/24
06:59 06:59 06:59
Intake Total 660 / 660 960 / 960
Output Total 775 / 775 1450 / 1450
Balance -115 / -115 -490 / -490
--- NOTE | 2024-09-03 14:46 | CM ---
Chart reviewed. Care ongoing.
Therapy determining HH vs OP therapy
CM will cont to follow for d/c planning
Plan: Home when stable
[2024-09-03 15:00] VITALS: BP 125/56
[2024-09-03 15:23] VITALS: BP 134/62; PULSE 61; O2SAT 95
[2024-09-03 16:11] LABS: Glucose - Point of Care 150 mg/dl (70-99)
[2024-09-03] MEDS: NOVOLOG FLEXPEN-LOW RESISTANCE 1 UNITS SC (16:19)
[2024-09-03] MEDS: LOVENOX 40 MG SC (17:18)
[2024-09-03] MEDS: LIPITOR 80 MG PO (17:18)
--- NOTE | 2024-09-03 17:27 | W.PN.UPDATE ---
Update Note
Progress Note Update
Long conversation with the patient's
Patient likely has diabetic neuropathy, also has neuroforaminal stenosis as per L-spine MRI
Requested something for pain-started gabapentin discussed about gabapentin
Prescription provided for outpatient PT OT
He needs a rolling walker I have sent a prescription upstairs
Case discussed with neurology
More than 30 minutes spent in discharge including
Final examination of the patient
Summarizing hospital stay
Instructions for continuing care to all relevant caregivers
Preparation of discharge records, prescriptions, and referral forms
Total time spent (in minutes): 36 min
--- NOTE | 2024-09-03 17:29 | W.DS.TRANS ---
Addendum entered and electronically signed by Randy Mcknight MD 09/03/24 17:32:
Dictation- [id number]
Original Note:
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
-
Discharge Instructions:
Discharge Diagnosis/Procedures Right leg progressive weakness
Diabetic neuropathy
Mild left basilar pneumonia diabetes
Anxiety and depression
High cholesterol
History of stroke in 2022
Fatty liver
Diet Diabetic, Carb Controlled
Activity As tolerated
Additional Activity If you have pain and weakness do not drive
Other Services OT,PT
Instructions:
Stand-Alone Forms:
Changes to Home Medications: Yes
Discharge Medications:
DC Medications w/original date entered in Circle
metformin 1,000 mg tablet 1,000 mg PO BID@0800,1700 Diabetes 03/12/11
atorvastatin 40 mg tablet 80 mg PO QPM Stroke 08/31/24
sertraline 50 mg tablet 50 mg PO DAILY Mental Health/Anxiety 08/31/24
tamsulosin 0.4 mg capsule (Flomax) 0.4 mg PO HS Urinary Issue 08/31/24
aspirin 81 mg tablet,delayed release (Ecotrin Low Strength) 81 mg PO DAILY Blood clot prevention/tx #30 tabs 09/03/24
doxycycline hyclate 100 mg capsule 100 mg PO Q12 Infection #5 caps 09/03/24
famotidine 40 mg tablet (Pepcid) 40 mg PO DAILY Gastrointestinal issue #30 tabs 09/03/24
gabapentin 100 mg capsule 100 mg PO TID Neurological Condition #90 caps 09/03/24
Home Medication Changes
Gabapentin, famotidine, doxycycline, aspirin-are new
Pending Results: No
== END 2024-09-03 18:58 | disposition home or self-care (01) | DRG 205 ==
LOC: 4 WEST ACU 09:44
PROVIDERS: Emergency Medicine; Registered Nurse; ADMITTING PHYSICIAN Hospitalist; ATTENDING PHYSICIAN Hospitalist; CONSULT PHYSICIAN Psychiatry & Neurology Clinical Neurophysiology; EMERGENCY PHYSICIAN Student in an Organized Health Care Education/Training Program; PRIMARYCARE PHYSICIAN Family Medicine
DX: J98.11 Atelectasis (principal); J18.9 Pneumonia, unspecified organism; E11.40 Type 2 diabetes mellitus with diabetic neuropathy, unspecified; F41.9 Anxiety disorder, unspecified; F32.A Depression, unspecified; K76.0 Fatty (change of) liver, not elsewhere classified; Z79.82 Long term (current) use of aspirin; Z86.73 Personal history of transient ischemic attack (TIA), and cerebral infarction without residual deficits; E78.00 Pure hypercholesterolemia, unspecified; Z87.891 Personal history of nicotine dependence; G89.29 Other chronic pain; J43.9 Emphysema, unspecified; D56.9 Thalassemia, unspecified; N40.0 Benign prostatic hyperplasia without lower urinary tract symptoms; M19.90 Unspecified osteoarthritis, unspecified site; Z79.84 Long term (current) use of oral hypoglycemic drugs; Z87.442 Personal history of urinary calculi; Z91.81 History of falling; J98.4 Other disorders of lung; I45.10 Unspecified right bundle-branch block
CPT/HCPCS: 70450; 71046; 72158; 80048; 80053; 80061; 82550; 82607; 82962; 83036; 84443; 84484; 85025; 85027; 85379; 93005; 93971; 95886; 95912; 97116; 97163; 99285; A9575

== ENCOUNTER 2024-10-04 11:05 | Outpatient (RCR) | payer OTHER, SELFPAY | END 2024-10-04 23:59 | disposition home or self-care (01) | LOC: RPT 11:05 | PROVIDERS: ATTENDING PHYSICIAN Family Medicine | DX: M62.81 Muscle weakness (generalized) (principal); Z73.6 Limitation of activities due to disability; E08.42 Diabetes mellitus due to underlying condition with diabetic polyneuropathy; R26.89 Other abnormalities of gait and mobility; R26.2 Difficulty in walking, not elsewhere classified; R29.6 Repeated falls; Z86.73 Personal history of transient ischemic attack (TIA), and cerebral infarction without residual deficits | CPT/HCPCS: 97110; 97112; 97162; 97167; 97530; 97535 ==

== ENCOUNTER 2024-10-25 11:46 | Outpatient (RCR) | payer OTHER, SELFPAY | END 2024-11-12 23:59 | disposition home or self-care (01) | LOC: RPT 11:46 | PROVIDERS: ATTENDING PHYSICIAN Family Medicine | DX: M62.81 Muscle weakness (generalized) (principal); Z73.6 Limitation of activities due to disability; E08.42 Diabetes mellitus due to underlying condition with diabetic polyneuropathy; R26.89 Other abnormalities of gait and mobility; R26.2 Difficulty in walking, not elsewhere classified; R29.6 Repeated falls; Z86.73 Personal history of transient ischemic attack (TIA), and cerebral infarction without residual deficits | CPT/HCPCS: 97110; 97112; 97116; 97530; 97535; 97537 ==

== ENCOUNTER → 2024-11-02 10:23 | Outpatient (REF) | payer OTHER, SELFPAY ==
[2024-11-02 12:06] LABS: Hematocrit 37.2 % (39.0-52.0); Hemoglobin 11.6 g/dL (13.0-18.0); Mean Corp Hgb Conc. 31.2 g/dL (33.0-37.0); Mean Corpuscular Volume 60.2 fL (80.0-94.0); Nucleated Red Blood Cells % 0 % (-); Platelet Count 242 10^3/uL (130-400); Red Cell Dist. Width 19.4 % (11.5-14.5)
[2024-11-02 12:15] LABS: ALT (SGPT) 16 U/L (0-50); AST (SGOT) 21 U/L (17-59); Albumin 4.4 g/dl (3.5-5.0); Alkaline Phosphatase 62 U/L (38-126); Blood Urea Nitrogen 20 mg/dl (9-20); Calcium 9.6 mg/dl (8.4-10.2); Carbon Dioxide 24 mmol/L (22-30); Chloride 105 mmol/L (98-107); Glucose 127 mg/dl (70-99); Iron 103 ug/dl (49-181); Potassium 4.4 mmol/L (3.5-5.1); Sodium 137 mmol/L (135-145); Total Protein 7.0 g/dl (6.3-8.2); eGFR > 60.00
[2024-11-02 12:25] LABS: Total Iron Binding Capacity 295 ug/dl (261-462)
[2024-11-02 12:33] LABS: Glycohemoglobin (HgbA1c) 6.9 % (4.0-5.6)
[2024-11-02 13:29] LABS: Ferritin 187.0 ng/ml (17.9-464.0)
== END ==
LOC: HWCARD 10:23
PROVIDERS: ATTENDING PHYSICIAN Specialist; FAMILY PHYSICIAN Physician Assistant
DX: Z01.818 Encounter for other preprocedural examination (principal); D64.9 Anemia, unspecified; E11.9 Type 2 diabetes mellitus without complications
CPT/HCPCS: 80053; 82728; 83036; 83540; 83550; 85025; 93005

== ENCOUNTER → 2024-11-14 11:36 | Outpatient (REF) | payer OTHER, SELFPAY ==
[2024-11-14 16:17] LABS: Hematocrit 37.7 % (39.0-52.0); Hemoglobin 11.7 g/dL (13.0-18.0); Mean Corp Hgb Conc. 31.0 g/dL (33.0-37.0); Mean Corpuscular Volume 60.4 fL (80.0-94.0); Nucleated Red Blood Cells % 0 % (-); Platelet Count 230 10^3/uL (130-400); Red Cell Dist. Width 19.3 % (11.5-14.5)
== END ==
LOC: HWLAB 11:36
PROVIDERS: ATTENDING PHYSICIAN Physician Assistant
DX: D64.9 Anemia, unspecified (principal)
CPT/HCPCS: 36415; 85025

== ENCOUNTER → 2024-11-19 08:46 | Outpatient (REF) | payer OTHER, SELFPAY | LOC: HWRAD 08:46 | PROVIDERS: ATTENDING PHYSICIAN Specialist; FAMILY PHYSICIAN Physician Assistant | DX: S46.012A Strain of muscle(s) and tendon(s) of the rotator cuff of left shoulder, initial encounter (principal) | CPT/HCPCS: 73200 ==

== ENCOUNTER → 2024-12-25 10:28 | Outpatient (REF) | payer OTHER, SELFPAY ==
[2024-12-25 12:40] LABS: Hematocrit 38.1 % (39.0-52.0); Hemoglobin 11.3 g/dL (13.0-18.0); Mean Corp Hgb Conc. 29.7 g/dL (33.0-37.0); Mean Corpuscular Volume 62.9 fL (80.0-94.0); Nucleated Red Blood Cells % 0 % (-); Platelet Count 296 10^3/uL (130-400); Red Cell Dist. Width 18.7 % (11.5-14.5)
[2024-12-25 14:33] LABS: Iron 62 ug/dl (49-181)
[2024-12-25 14:45] LABS: Total Iron Binding Capacity 318 ug/dl (261-462)
[2024-12-25 15:36] LABS: Ferritin 182.0 ng/ml (17.9-464.0)
== END ==
LOC: HWLAB 10:28
PROVIDERS: ATTENDING PHYSICIAN Physician Assistant
DX: D56.3 Thalassemia minor (principal); D64.9 Anemia, unspecified
CPT/HCPCS: 36415; 82728; 83540; 83550; 85025

== ENCOUNTER 2025-01-11 09:19 | Outpatient (RCR) | payer OTHER, SELFPAY | END 2025-01-14 23:59 | disposition home or self-care (01) | LOC: RPT 09:19 | PROVIDERS: ATTENDING PHYSICIAN Specialist; FAMILY PHYSICIAN Student in an Organized Health Care Education/Training Program | DX: Z47.1 Aftercare following joint replacement surgery (principal); Z73.6 Limitation of activities due to disability; M62.81 Muscle weakness (generalized); M25.512 Pain in left shoulder; Z96.612 Presence of left artificial shoulder joint | CPT/HCPCS: 97010; 97110; 97140; 97161 ==

== ENCOUNTER 2025-01-15 02:24 | Emergency (ER) | payer OTHER, SELFPAY ==
[2025-01-15 02:36] VITALS: BMI 35.9
[2025-01-15 03:00] VITALS: BP 98/76
[2025-01-15 03:16] LABS: D-Dimer 1.37 ug/mlFEU (0.00-0.50)
[2025-01-15 03:22] LABS: Lipase 32 U/L (23-300)
[2025-01-15 03:34] LABS: Troponin I < 0.012 ng/ml
--- NOTE | 2025-01-15 03:57 | ED.GENMED ---
History of Present Illness
General
Chief Complaint: Breathing Problem
Source: patient
Exam Limitations: none
Time Seen by Provider: 01/15/25 02:25
Nursing documentation reviewed up to this point in time: agreed with
History of Present Illness
History of Present Illness:
69-year-old male history of insulin-dependent diabetes, tobacco use disorder, TIA, presents to the ER today with concerns of left-sided chest pain radiating to the back and shortness of breath starting at around 7 PM this evening. Patient reports
that he tried to go to sleep but the symptoms but then the symptoms woke him up from sleep. Patient reports that he had a very difficult time ascending the stairs at his home due to the severity of the symptoms. He is never had this before. He
reports that he is not coughing, no recent sick contacts, no fevers or chills. The pain is intermittent, can occur with exertion, lasts around 5 minutes per episode. While at rest, the pain is less pronounced. He attempted to relieve the chest
pain with Motrin which proved ineffective. He reports that he follows with [facility] for checkups but denies any history of cardiac disease. He does not take any medication for his blood pressure. He reports that he was
found to have regurgitation of 1 valve which is monitored with echoes. 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 He takes atorvastatin for high cholesterol. Patient does also admit to left shoulder pain but he suspects this
is related to his recent rotator cuff operation in his left shoulder. He denies any redness or swelling in his legs. He denies any recent long distance travel.
Past History
Past History
ED Past Medical History: Cancer (Basal cell), COPD, Hypercholesterolemia, NIDDM and Other (Thalassemia, pyelonephritis, nephrolithiasis, diverticulosis, colon polyps, osteoarthritis)
ED Past Surgical History: Orthopedic (Right ankle)
Social History
Tobacco: Former smoker
Alcohol: None
Drug: None
Personal:
Living: with family
Employment: Employed (heating/cooling)
Family History
Family History: Other (nc)
Review of Systems
Review of Systems
All Other Systems: ROS reviewed and negative except as documented in HPI and ROS
Phy Exam
General Physical Exam
General Presentation: well appearing and no apparent distress
General age: appears stated age
General Skin: warm and dry
General Habitus: normal
General Mental: alert
General Hydration: appears well hydrated
ENT Exam
ENT Exam: EOMI
Eye Exam
Eye Exam: PERRL and EOMI
Cardiovascular Exam
Cardiovascular Exam: regular rate/rhythm and no edema
Pulmonary Exam
Pulmonary Exam: lungs clear, no respiratory distress, no rales, no crackles, no rhonchi, no wheezing and no cough
Oxygen Status: room air (On 3 minute walk test, patient did not experience shortness of breath or desaturate)
Cough: no cough
Gastrointestinal Exam
Gastrointestinal Exam: non distended
Neurological Exam
Neurological Exam: alert, oriented x3, CN II-XII intact and normal gait
Musculoskeletal Exam
Musculoskeletal Exam: full ROM
Skin Exam
Skin Exam: normal color, warm/dry and no rash
Scores
Heart Failure Risk
Heart Failure Risk Score: Not Applicable
Course
Orders/Labs/Results
Orders:
Orders
01/15/25 02:30
EKG [Electrocardiogram (*1)] Urgent
Reason for Study: Chest Pain
EKG- Treatment ONCE
01/15/25 02:46
EKG- Treatment ONCE
CR Chest - 2 Views Urgent
Comment:
Reason For Exam: chest pain
01/15/25 02:47
Comprehensive Metabolic Panel Urgent
Comment: ADD ON
D-Dimer Urgent
Lipase Urgent
NT-proBNP Urgent
Troponin I Urgent
01/15/25 03:49
CT Chest PE Study Urgent
Comment:
Reason For Exam: left sided chest pain, shortness of breath
01/15/25 05:59
Pantoprazole [Protonix IV] 40 mg IV NOW STA
01/15/25 06:00
Electrocardiogram (*1) Q3H
Reason for Study: Chest Pain
01/15/25 06:10
Complete Blood Count/With Diff Urgent
Troponin I Q3H
Abnormal Lab Results
01/15/25 01/15/25
02:47 06:10
WBC 12.2 H 10^3/uL
(4.8-10.8)
Hgb 10.9 L g/dL
(13.0-18.0)
Hct 35.4 L %
(39.0-52.0)
MCV 61.2 L fL
(80.0-94.0)
MCH 18.9 L pg
(27.0-31.0)
MCHC 30.8 L g/dL
(33.0-37.0)
RDW 17.4 H %
(11.5-14.5)
Absolute Neuts (auto) 9.3 H 10^3/uL
(1.4-6.5)
Absolute Monos (auto) 0.9 H 10^3/uL
(0.1-0.6)
Neutrophils % 76.3 H %
(42.2-75.2)
Lymphocytes % 15.4 L %
(20.5-51.1)
D-Dimer 1.37 H ug/mlFEU
(0.00-0.50)
BUN 21 H mg/dl
(9-20)
Glucose 214 H mg/dl
(70-99)
01/15/25 06:10
01/15/25 03:53
Vital Signs
Initial and Last Documented VS:
Initial Vital Signs
Temp Pulse Resp Pulse Ox
98.1 F 93 18 96
01/15/25 02:28 01/15/25 02:28 01/15/25 02:28 01/15/25 02:28
Last Documented Vital Signs
Temp Pulse Resp BP Pulse Ox
98.2 F 80 16 133/73 98
01/15/25 07:30 01/15/25 07:30 01/15/25 07:30 01/15/25 07:30 01/15/25 07:30
MDM/Problems Addressed
Differential Diagnosis Includes:
ddx inckude ACS, costochondritis, s/p recent left shoulder arthroplasty, GERD, PE
MDM/Problems Addressed:
69-year-old male history of insulin-dependent diabetes, tobacco use disorder, TIA, presents to the ER today with concerns of left-sided chest pain radiating to the back and shortness of breath starting at around 7 PM this evening. Patient reports
that he tried to go to sleep but the symptoms but then the symptoms woke him up from sleep. On exam, he is well appearing, in no acute distress. Minimal pain at time of evaluation. In light of pleuritc left sided atypical chest pain with SOB d dimer
sent which was elevated, CT scan revealed no PE. Troponin undetectable x2. ECG non-ischemic. Patient pain free at time of discharge. Patient follows with [facility] and will be discharged with chest pain hot line.
Chronic conditions affecting care: DM
*Pulse Oximetry
SaO2: 96
Oxygen Mode of Delivery: Room air
Patient hypoxic: no
*Critical Care Note
Total Time (30-74mins, 75-104mins- exclusive of procedures): Not Applicable
Data Reviewed
Review of Other/Old Records Reveals: Records (reviewed discharge summary from 09/11/24)
Prescriptions/Medications Considered But Not Given:
n/a
Update Note
Update Note:
5:50 AM, patient is chest pain free. He was sleeping comfortably on my evaluation. He does not feel that he feels short of breath at this time. Will repeat troponin at 6 AM.
ED Attending Note
-
Portions of this chart may have been created with voice recognition software.� Occasional wrong word or��sound alike� substitutions may have occurred due to the inherent limitations of voice recognition software.
Discharge Plan
Departure
Patient Disposition: Home (Routine Discharge)
Date of Disposition: 01/15/25
Time of Disposition: 07:01
Patient with high blood pressure during this ER visit?: Yes
Condition: Good
Discharge Problem:
Chest pain, Shortness of breath
Instructions: Chest Pain [facility] Follow Up, BLOOD PRESSURE
Prescriptions:
No Action
metformin 1,000 mg Tablet
1,000 mg PO BID@0800,1700
tamsulosin [Flomax] 0.4 mg Capsule
0.4 mg PO HS
sertraline 50 mg Tablet
50 mg PO DAILY
atorvastatin 40 mg tablet
80 mg PO QPM
doxycycline hyclate 100 mg Capsule
100 mg PO Q12 Qty: 5 0RF
famotidine [Pepcid] 40 mg tablet
40 mg PO DAILY Qty: 30 0RF
gabapentin 100 mg Capsule
100 mg PO TID Qty: 90 0RF
aspirin [Ecotrin Low Strength] 81 mg tablet,delayed release (DR/EC)
81 mg PO DAILY Qty: 30 0RF
Referrals:
Marium Varela PA-C [Family Provider, Internal Medicine]
Activity Restrictions/Additional Instructions:
As discussed, your CT scan shows no evidence of pulmonary embolism. No evidence of aneurysm or dissection of the aorta. Your repeat ECG shows no new changes.
You should receive a call from your complex human resources manager to schedule follow-up appointment. If you not receive a call, please call the attached number.
PLEASE RETURN TO THE ER SHOULD YOU DEVELOP FAINTING SPELLS, DIZZINESS, LIGHTHEADEDNESS, VISUAL CHANGES, CHEST PAIN, UPPER BACK PAIN, SHORTNESS OF BREATH, or any other signs or symptoms worrisome to you.
Interventions
Interventions:
*Risk Screen - Suicide Last Done: 01/15/25 02:32
*General Assessment Last Done: 01/15/25 02:32
*Neglect/Abuse Screening Last Done: 01/15/25 05:10
*ED- Fall Risk Assessment Last Done: 01/15/25 02:31
*ED COVID-19 Vaccine History Last Done: 01/15/25 02:31
*ED Influenza Vaccine History Last Done: 01/15/25 02:31
*Nursing Disposition Last Done: 01/15/25 07:30
ED- Cardiac Assessment Last Done: 01/15/25 02:33
ED- Pulmonary Assessment Last Done: 01/15/25 02:34
Discharge Date and Time
Discharge Date/Time: 01/15/25 08:00
Print Language: SINHALA
[2025-01-15 04:28] LABS: ALT (SGPT) 15 U/L (0-50); AST (SGOT) 17 U/L (17-59); Albumin 4.1 g/dl (3.5-5.0); Alkaline Phosphatase 102 U/L (38-126); Blood Urea Nitrogen 21 mg/dl (9-20); Calcium 9.1 mg/dl (8.4-10.2); Carbon Dioxide 23 mmol/L (22-30); Chloride 106 mmol/L (98-107); Estimated Creatinine Clearance 115 ml/min; Glucose 214 mg/dl (70-99); Potassium 4.4 mmol/L (3.5-5.1); Sodium 138 mmol/L (135-145); Total Protein 6.8 g/dl (6.3-8.2); eGFR > 60.00
[2025-01-15 05:09] VITALS: BP 120/84
[2025-01-15 06:00] VITALS: BP 135/65
[2025-01-15 06:19] LABS: Hematocrit 35.4 % (39.0-52.0); Hemoglobin 10.9 g/dL (13.0-18.0); Mean Corp Hgb Conc. 30.8 g/dL (33.0-37.0); Mean Corpuscular Volume 61.2 fL (80.0-94.0); Nucleated Red Blood Cells % 0 % (-); Platelet Count 239 10^3/uL (130-400); Red Cell Dist. Width 17.4 % (11.5-14.5)
[2025-01-15 06:44] LABS: Troponin I < 0.012 ng/ml
[2025-01-15 07:20] VITALS: BP 133/73
[2025-01-15 07:30] VITALS: BP 133/73
--- NOTE | 2025-01-15 07:30 | EDRN ---
Reviewed discharge instructions with patient. Verbalized understanding. Waiting for his ride home.
== END 2025-01-15 08:00 | disposition home or self-care (01) ==
LOC: EMR 02:24
PROVIDERS: Physician Assistant; EMERGENCY PHYSICIAN Emergency Medicine; FAMILY PHYSICIAN Physician Assistant
DX: R07.89 Other chest pain (principal); R06.02 Shortness of breath; E11.9 Type 2 diabetes mellitus without complications; E78.00 Pure hypercholesterolemia, unspecified; D56.9 Thalassemia, unspecified; J44.9 Chronic obstructive pulmonary disease, unspecified; Z86.0100 Personal history of colon polyps, unspecified; Z86.73 Personal history of transient ischemic attack (TIA), and cerebral infarction without residual deficits; Z87.442 Personal history of urinary calculi; Z87.891 Personal history of nicotine dependence; Z96.619 Presence of unspecified artificial shoulder joint
CPT/HCPCS: 99284; 71046; 71275; 80053; 83690; 83880; 84484; 85025; 85379; 93005; Q9967

== ENCOUNTER 2025-01-16 12:20 | Emergency (ER) | payer OTHER, SELFPAY ==
[2025-01-16 12:21] VITALS: BMI 34.5
[2025-01-16 12:23] VITALS: BP 138/81
[2025-01-16] MEDS: TYLENOL 1000 MG PO (13:32)
[2025-01-16] MEDS: LIDOCAINE 4% PATCH 1 PATCH TOPICAL (13:32)
[2025-01-16 13:57] LABS: Urine Character Cloudy (Clear)
--- NOTE | 2025-01-16 14:06 | ED.GENMED ---
History of Present Illness
General
Chief Complaint: Urinary Symptoms
Time Seen by Provider: 01/16/25 12:44
Nursing documentation reviewed up to this point in time: agreed with
History of Present Illness
History of Present Illness:
69-year-old male presents to the ER for evaluation of headache and urinary incontinence. Patient reports that these issues have been going on for the last several months. He reports that he has not talked to his urologist about this-Dr. Varela.
He is not currently on antibiotics. Patient was seen in this ER 2 days ago for chest pain evaluation. In review of the ER note, there is no comment about headache or urinary symptoms at that time. Patient denies any change in vision. He denies
focal weakness. He states that he has difficulty with his left shoulder status post replacement. Patient had been referred to physical therapy for neck discomfort but had to discontinue at the advice of his orthopedic surgeon as they felt it was
exacerbating his left shoulder discomfort. He has not been consistently taking any medications for his headache or shoulder pain. He denies fever. He has been eating and drinking without trouble. He states that he has been urinating nearly
constantly over the past several weeks to months. He has noted a change in the odor of his urine. He denies flank pain. No abdominal pain.
Past History
Past History
ED Past Medical History: Cancer (Basal cell), COPD, Hypercholesterolemia, NIDDM and Other (Thalassemia, pyelonephritis, nephrolithiasis, diverticulosis, colon polyps, osteoarthritis)
ED Past Surgical History: Orthopedic (Right ankle)
Social History
Tobacco: Former smoker
Alcohol: None
Drug: None
Personal:
Living: with family
Employment: Employed (heating/cooling)
Family History
Family History: Other (nc)
Review of Systems
Review of Systems
Allergies reviewed?: Yes
Phy Exam
Physical Exam
Physical Exam:
Patient is awake, alert, appears in no acute distress, strong smell of urine, head is NCAT, PERRL, no photophobia, no pain on palpation of midline cervical spine, severe paraspinal hypertonicity noted lower paracervical musculature and bilateral
trapezius, patient has no limitation active range of motion of his neck, limited active range of motion of his left shoulder (he reports this is not new), EOMI mucous membranes moist, conjunctiva pink, heart regular rate and rhythm without murmurs
or ectopy, lungs are clear to auscultation without wheezes rales or rhonchi, no JVD, abdomen is soft and nontender on palpation, extremities without edema, GCS is 15
Course
Orders/Labs/Results
Orders:
Orders
01/16/25 12:45
Bladder Scan- Treatment ONCE
01/16/25 12:56
CT Head W/o Iv Contrast Urgent
Comment:
Reason For Exam: headache
Acetaminophen [Tylenol] 1,000 mg PO NOW STA
01/16/25 13:00
Lidocaine [Lidocaine 4% Patch] 1 patch TOPICAL DAILY
Apply Lidocaine patch(s) to:: posterior neck
01/16/25 13:37
Urinalysis Reflex To Culture Urgent
Date Specimen was Collected: 01/16/25
Time Specimen was Collected: 13:28
Urine Microscopic Reflex Cult Urgent
Urine Culture Urgent
MITCHEL Source: U
Specimen Description:
Date Specimen was Collected: 01/16/25
Time Specimen was Collected: 13:28
01/16/25 14:07
Sulfamethox./Trimethoprim Ds [Bactrim Ds 800 mg/160 mg] 1 tablet PO NOW STA
Abnormal Lab Results
01/16/25
13:37
Ur Occult Blood Reflex 4+ A
(Negative)
Urine Nitrite (Reflex) Positive A
(Negative)
Leukocyte Esterase Rfl 3+ A
(Negative)
Urine WBC (Reflex) >100 A /HPF
(0-5)
Urine Albumin (Reflex) 3+ A
(Neg - Trace)
Urinalysis is consistent with acute infection. Postvoid residual was 54 mL-no evidence for urinary retention. no glucosuria or ketonuria- very reassuring
I reviewed labs from ER visit 2 days ago, normal kidney function
Vital Signs
Initial and Last Documented VS:
Initial Vital Signs
Temp Pulse Resp BP Pulse Ox
98.4 F 84 20 138/81 98
01/16/25 12:23 01/16/25 12:23 01/16/25 12:23 01/16/25 12:23 01/16/25 12:23
Last Documented Vital Signs
Temp Pulse Resp BP Pulse Ox
98.4 F 84 20 138/81 98
01/16/25 12:23 01/16/25 12:23 01/16/25 12:23 01/16/25 12:23 01/16/25 14:07
MDM/Problems Addressed
Differential Diagnosis Includes:
Differential diagnosis to consider but not limited to overflow incontinence, acute urinary retention, UTI, cervical strain, tension headache, intracranial mass, intracranial hemorrhage, along with other etiologies considered
Chronic conditions affecting care:
Chronic pain, obesity, diabetes
*Radiology
Radiology exam reviewed: preliminary read by ED provider (I independently viewed and interpreted CT head showing mild atrophy, no midline shift, no hemorrhage. Awaiting radiology interpretation) and radiology read reviewed (CTH:IMPRESSION: There
are mild changes of cortical atrophy and chronic ischemic disease)
*Pulse Oximetry
SaO2: 98
Oxygen Mode of Delivery: Room air
Patient hypoxic: no
*Critical Care Note
Total Time (30-74mins, 75-104mins- exclusive of procedures): Not Applicable
Update Note
Update Note:
I discussed with patient very reassuring CT head along with urinalysis consistent with infection. Patient agrees with plan for discharge home with treatment with oral antibiotics. I discussed with patient strict return precautions. I advised
patient that his headache is likely multifactorial and related to his previous shoulder surgery/physical limitations. 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 Patient expressed
understanding of discharge plan and had no questions prior to them in the department.
ED Attending Note
-
Portions of this chart may have been created with voice recognition software.� Occasional wrong word or��sound alike� substitutions may have occurred due to the inherent limitations of voice recognition software.
Discharge Plan
Departure
Patient Disposition: Home (Routine Discharge)
Date of Disposition: 01/16/25
Time of Disposition: 14:31
Patient with high blood pressure during this ER visit?: No
Discharge Problem:
Urinary tract infection, Headache
Instructions: Headaches in adults, Urinary tract infection in adults - ED (DC)
Prescriptions:
New
sulfamethoxazole-trimethoprim [Bactrim DS] 800-160 mg tablet
1 tab PO Q12H Qty: 20 0RF
No Action
metformin 1,000 mg Tablet
1,000 mg PO BID@0800,1700
tamsulosin [Flomax] 0.4 mg Capsule
0.4 mg PO HS
sertraline 50 mg Tablet
50 mg PO DAILY
atorvastatin 40 mg tablet
80 mg PO QPM
doxycycline hyclate 100 mg Capsule
100 mg PO Q12 Qty: 5 0RF
famotidine [Pepcid] 40 mg tablet
40 mg PO DAILY Qty: 30 0RF
gabapentin 100 mg Capsule
100 mg PO TID Qty: 90 0RF
aspirin [Ecotrin Low Strength] 81 mg tablet,delayed release (DR/EC)
81 mg PO DAILY Qty: 30 0RF
Referrals:
Marium Varela PA-C [Family Provider, Internal Medicine]
Activity Restrictions/Additional Instructions:
Complete course of antibiotics as prescribed. Please make an appointment to see your primary care provider in 1 week for reevaluation and further care. You may benefit from physical therapy referral for further treatment of your headaches.
Continue using ibuprofen as needed for pain. You may also add Tylenol for any pain uncontrolled by ibuprofen. Also try [id number] topical pain relieving creams for additional pain relief.
Interventions
Interventions:
*Risk Screen - Suicide Last Done: 01/16/25 12:23
*General Assessment Last Done: 01/16/25 13:40
*Neglect/Abuse Screening Last Done: 01/16/25 12:23
*ED- Fall Risk Assessment Last Done: 01/16/25 13:40
ED-Male Genitourinary Assessment Last Done: 01/16/25 13:40
Discharge Date and Time
Print Language: SLOVAK
[2025-01-16] MEDS: BACTRIM DS 800 MG/160 MG 1 TABLET PO (14:15)
[2025-01-16 14:58] LABS: Urine White Cell >100 /HPF (0-5)
--- NOTE | 2025-01-16 15:49 | EDRN ---
Reviewed discharge instructions with patient. Verbalized understanding. Ambulated with steady gait to the lobby.
== END 2025-01-16 15:51 | disposition home or self-care (01) ==
LOC: EMR 12:20
PROVIDERS: EMERGENCY PHYSICIAN Emergency Medicine; FAMILY PHYSICIAN Physician Assistant
DX: N39.0 Urinary tract infection, site not specified (principal); B96.20 Unspecified Escherichia coli [E. coli] as the cause of diseases classified elsewhere; R51.9 Headache, unspecified; G31.9 Degenerative disease of nervous system, unspecified; E11.9 Type 2 diabetes mellitus without complications; E78.00 Pure hypercholesterolemia, unspecified; D56.9 Thalassemia, unspecified; J44.9 Chronic obstructive pulmonary disease, unspecified; E66.9 Obesity, unspecified; Z68.34 Body mass index [BMI] 34.0-34.9, adult; G89.29 Other chronic pain; M19.90 Unspecified osteoarthritis, unspecified site; Z79.84 Long term (current) use of oral hypoglycemic drugs; Z79.82 Long term (current) use of aspirin; Z87.891 Personal history of nicotine dependence; Z96.611 Presence of right artificial shoulder joint
CPT/HCPCS: 99284; 70450; 81003; 81015; 87077; 87086; 87186

== ENCOUNTER → 2025-03-12 12:03 | Outpatient (REF) | payer OTHER, SELFPAY ==
[2025-03-12 12:36] LABS: Urine Character Slightly Cloudy (Clear)
[2025-03-12 12:55] LABS: Urine Squamous Cell 0-2 /LPF (Few); Urine White Cell 40-50 /HPF (0-5)
== END ==
LOC: CLAB 12:03
PROVIDERS: ATTENDING PHYSICIAN Physician Assistant
DX: R10.32 Left lower quadrant pain (principal); N39.0 Urinary tract infection, site not specified
CPT/HCPCS: 81003; 81015; 87077; 87086; 87186